=== PATIENT | female | born 1945 | race Caucasian/White ===

== ENCOUNTER → 2023-06-27 | Outpatient (CLI) | payer MEDICARE ==
[~2023-06-27] MED LIST: CENTRUM1 TA1 PO; CRANBERRY500 M3 PO; FOLIC ACID 11 MG/TA1 PO; IRON TABLETS325 MG PO; MAG-OX 400400 MG/TAB PO; MOTRIN 600600 MG/TAB PO; NEURONTIN300 MG/CAP PO; NORCO 325 MG-51 TAB PO; NORVASC 10MG10 MG PO; PHARMASSURE ZIN50 MG PO; PRINIVIL10 MG PO; XANAX .25M0.25 MG/TA PO; ZOLOFT 25MG25 MG PO; [UNRECOGNIZED DRUG - OTHER] PO
== END ==
LOC: MC.RAD 12:57 → EDSEX 12:57 → MC.RAD 13:00
DX: C50.912 Malignant neoplasm of unspecified site of left female breast (principal)
CPT/HCPCS: A4648; A9520-JZ

== ENCOUNTER 2023-06-28 09:11 | Day surgery (SDC) | payer MEDICARE, OTHER ==
[~2023-06-28] VITALS: Ht 160 cm; Wt 54.6 kg
[2023-06-28 10:47] LABS: BASO # 0.1 K/mm3 (0.0-0.2); BASO % 0.9 % (0.0-2.0); EOS # 0.1 K/mm3 (0.0-0.7); EOS % 1.3 % (0.0-4.0); GRAN # 5.8 K/mm3 (1.4-6.5); LYMPH # 1.3 K/mm3 (1.2-3.4); LYMPH % 16.3 % (20.0-51.0); MEAN CELL VOLUME 81 fl (80.0-100.0); MEAN CORPUSCULAR HEMOGLOBIN 27 pg (27-31); MEAN CORPUSCULAR HGB CONC 33 g/dl (33.0-37.0); MEAN PLATELET VOLUME 8.6 fl (7.4-10.4); MONO # 0.6 K/mm3 (0.1-0.6); MONO % 7.2 % (1.7-9.3); PLATELET COUNT 340 K/mm3 (130-400); RED BLOOD COUNT 4.52 M/mm3 (4.20-5.60); REDCELL DISTRIBUTION WIDTH-CV 14.6 % (11.5-14.5)
[2023-06-28 10:48] LABS: HEMATOCRIT 36.4 % (42.0-52.0)
[2023-06-28 11:10] LABS: ALBUMIN 4.5 gm/dL (3.4-4.8); BILIRUBIN,TOTAL 0.6 mg/dL (0.2-1.2); CREATININE, serum 0.72 mg/dL (0.72-1.25); POTASSIUM 4.5 mmol/L (3.5-4.5); TOTAL PROTEIN 7.5 gm/dL (6.2-8.1)
[2023-06-28 11:32] VITALS: BP 147/62; PULSE 68; TEMP 97.6
[2023-06-28] MEDS ORDERED: PRINIVIL10 MG PO (11:49)
[2023-06-28] MEDS ORDERED: NEURONTIN300 MG/CAP PO (11:49)
[2023-06-28] MEDS ORDERED: XANAX .25M0.25 MG/TA PO (11:49)
[2023-06-28] MEDS ORDERED: IRON TABLETS325 MG PO (11:50)
[2023-06-28] MEDS ORDERED: PHARMASSURE ZIN50 MG PO (11:50)
[2023-06-28] MEDS ORDERED: FOLIC ACID 11 MG/TA1 PO (11:51)
[2023-06-28] MEDS ORDERED: CRANBERRY500 M3 PO (11:52)
[2023-06-28] MEDS ORDERED: MAG-OX 400400 MG/TAB PO (11:52)
[2023-06-28] MEDS ORDERED: CENTRUM1 TA1 PO (11:53)
[2023-06-28] MEDS ORDERED: [UNRECOGNIZED DRUG - OTHER] PO (11:54)
[2023-06-28] MEDS ORDERED: ZOLOFT 25MG25 MG PO (11:55)
[2023-06-28] MEDS ORDERED: NORVASC 10MG10 MG PO (11:55)
[2023-06-28] MEDS ORDERED: MOTRIN 600600 MG/TAB PO (14:56)
[2023-06-28] MEDS ORDERED: NORCO 325 MG-51 TAB PO (14:57)
[2023-06-28 15:35] VITALS: BP 143/70; PULSE 83; TEMP 98.4
--- NOTE | 2023-06-28 15:35 | NUR ---
1535 PATIENT RETURNS TO ROOM 8 VIA CART. PATIENT IS DROWSY, BUT ALERTS TO VERBAL STIMULI. RESPIRATIONS EVEN AND UNLABORED, ON ROOM AIR. VITAL SIGNS OBTAINED. 2 INCISIONS SITES TO LEFT OUTER BREAST MEAL GRINDER TENDER WITH SKIN GLUE. CDI. 2 INCISION SITES TO RIGHT CEST MEAL GRINDER TENDER WITH SKIN GLUE. CDI. NO SIGNS OF INFECTIONS. PATIENT STATES THAT THE INCISION SITES TO LEFT OUTER BREAST IS SORE, BUT DOES NOT WANT ANYTHING FOR PAIN AT THIS TIME. PATIENT HAS ICE CHIPS, TOLERATING WELL. PATIENT FAMILY IN ROOM. 1600 PATIENT NEEDED ASSISTANCE TO AMBULATE TO THE RESTROOM. PATIENT VOIDED WITH NO DIFFICULTIES. 1605 THIS NURSE DISCONTINUED IV FROM RIGHT FOREARM WITH NO DIFFICULTIES. IV CATHETER INTACT. 1630 THIS NURSE REVIEWED DISCHARGE INSTRUCTIONS WITH PATIENT AND PATIENT FAMILY. PATIENT VERBALIZED UNDERSTANDING. 1640 PATIENT DISCHARGED FROM UNIT VIA WHEELCHAIR IN STABLE CONDITION.
[2023-06-28 15:50] VITALS: BP 141/57; PULSE 82
[2023-06-28 16:09] VITALS: BP 143/70; PULSE 93
== END 2023-06-28 16:40 | disposition home or self-care (01) ==
LOC: SDCO 09:11 → EDSEX 09:11 → SDCO 12:30
PROVIDERS: Surgery
DX: C50.912 Malignant neoplasm of unspecified site of left female breast (principal); I10 Essential (primary) hypertension; Z79.899 Other long term (current) drug therapy
CPT/HCPCS: A4648; C1788; J0690; J1100; J1644; J2250; J2405; J2704; J2795; J3010; J7120

== ENCOUNTER → 2023-11-26 | Outpatient (CLI) | payer MEDICARE, OTHER | LOC: COL.VAS 08:54 | DX: C50.412 Malignant neoplasm of upper-outer quadrant of left female breast (principal); I50.20 Unspecified systolic (congestive) heart failure; I07.1 Rheumatic tricuspid insufficiency ==